=== PATIENT | female | born 1935 | race Caucasian/White ===

== ENCOUNTER 2017-08-25 14:22 | Outpatient (CLI) | payer MEDICARE, BC ==
[2017-08-25 14:58] LABS: Estimated GFR-MDRD - POC Greater than 90
[2017-08-25] MEDS ORDERED: Iopamidol 370 76% 100 ML VIAL ONE (16:24)
--- NOTE | 2017-08-25 16:32 | CT ---
EXAM: CT ANGIOGRAM OF THE NECK: COMPARISON: None. CORRELATION: Carotid ultrasound 04/09/17. TECHNIQUE: CT angiogram of the neck is performed in the axial plane. Sagittal and coronal 3-dimensional reforma tted images are submitted for interpretation. HISTORY: Tingling episode in the neck, going up the head. Syncope. Slurred speech yesterday. FINDINGS: Visualized brain parenchyma and orbits are unremarkable. Adequate aeration of the sinuses and mastoi d air cells. Midline fatty raphae of the tongue is preserved. No obvious masses in the oral cavity. Limited eval uation due to dental amalgam artifact. Epiglottis has a normal caliber. Preepiglottic fat is preser jatin. No prevertebral soft tissue swelling. Varying degrees of central canal stenosis and foraminal narrowing on the basis of degenerative change. There is severe central canal stenosis at the C5-C6 l evel. End plate sclerosis and osteophyte formation is present at C5-C6 and C6-C7. Symmetric attenuation of the parotid and submandibular glands. Heterogeneous attenuation of the thyr oid gland. Nonemergent thyroid ultrasound. Symmetric attenuation of the sternocleidomastoid muscles . No evidence of lymphadenopathy by size criteria. Upper mediastinum is unremarkable. There is a spiculated mass in the right upper lobe measuring 1.[address] ANGIOGRAM OF THE NECK: There is appropriate enhancement and luminal diameter of the aortic arch. RIGHT CAROTID: Right innominate artery origin has atherosclerotic disease. No evidence of high-grade stenosis. The right common carotid artery has appropriate enhancement and luminal diameter. There is atherosclero tic disease without significant stenosis of the right carotid bifurcation and proximal internal carot id artery. Mid to distal right internal carotid artery has appropriate enhancement and luminal diame ter. LEFT CAROTID: The left carotid artery origin demonstrates minimal atherosclerotic disease. No significant stenosis . The left common carotid artery has appropriate enhancement and luminal diameter. There is atheros clerotic disease with short-segment mild stenosis of the proximal left internal carotid artery. Both vertebral body origins are unremarkable. Cervical vertebral body arteries are patent throughout their course and are codominant. Both subclavian arteries are patent. IMPRESSION: 1. Atherosclerotic disease involving both carotid bifurcations and proximal internal carotid arterie s. No evidence of significant stenosis based upon NASCET criteria. 2. Spiculated mass in the right upper lobe, worrisome for malignancy until proven otherwise. Chest CT is recommended. CODE T POS: [facility]
== END 2017-08-25 14:23 | disposition home or self-care (01) ==
LOC: CT 14:22
PROVIDERS: ATTEND Psychiatry & Neurology Neurology
DX: R55 Syncope and collapse (principal); I65.23 Occlusion and stenosis of bilateral carotid arteries; R91.8 Other nonspecific abnormal finding of lung field
CPT/HCPCS: 70498; 95816

== ENCOUNTER 2017-09-03 08:51 | Outpatient (CLI) | payer MEDICARE, BC ==
--- NOTE | 2017-09-03 10:58 | CT ---
CT OF THE CHEST WITH CONTRAST: Comparison: CTA neck, 08-25-17 History: Lung mass seen on CTA neck. Technique: Multiple contiguous axial images were obtained in a CT of the chest with contrast. Coronal reformats were performed. FINDINGS: There is a 1.2 cm spiculated lesion peripherally in the right upper lobe. This may represent scarring or a mass. No other pulmonary nodules are seen. No pneumothorax or pleural effusion are seen. There are hypodensities in the bilateral kidneys which likely represent cysts. There are nonobstructi ng calcifications in the right kidney. The other visualized subdiaphragmatic structures are unremarka ble. Degenerative changes are seen in the spine. There is a 1.1 cm spiculated lesion in the outer asp ect of the right breast. IMPRESSION: 1. Right upper lobe spiculated lesion may represent scarring or a mass. A follow up CT in 3 months is recommended to evaluate for stability. Alternatively, a PET CT could be performed to evaluate for hy permetabolic activity. 2. Spiculated lesion in the outer aspect of the right breast. Correlate with history of right breast surgery. Correlate with mammography. This could potentially represent a right breast malignancy. Code T POS: [facility]
[2017-09-03] MEDS ORDERED: Iopamidol 370 76% 100 ML VIAL ONE (12:41)
== END 2017-09-03 08:52 | disposition home or self-care (01) ==
LOC: CT 08:51
PROVIDERS: ATTEND Psychiatry & Neurology Neurology
DX: R91.8 Other nonspecific abnormal finding of lung field (principal); R91.1 Solitary pulmonary nodule
CPT/HCPCS: 71260

== ENCOUNTER 2017-09-21 12:39 | Observation (INO) | payer MEDICARE, BC ==
[2017-09-21 13:02] LABS: #Eosinphils 0.1 thou/uL (0.0-0.7); #Lymphocytes 1.9 thou/uL (1.20-3.40); #Monocytes 0.7 thou/uL (0.11-0.59); #Neutrophils 4.9 thou/uL (1.40-6.50); %Basophils 0.2 % (0.0-1.0); %Eosinophils 1.6 % (0.0-10.0); %Lymphocytes 24.3 % (21.0-51.0); %Neutrophils 64.9 % (42.0-75.0); Hemoglobin 13.6 g/dL (12.0-16.0); Mean Corpuscular HGB CONC 33.3 g/dL (32.0-36.0); Mean Corpuscular Hemoglobin 32.3 pg (27.0-31.0); Mean Corpuscular Volume 97.1 fl (81.0-99.0); Mean Platelet Volume 7.6 fL (7.4-10.4); Platelet Count 234 thou/uL (130-400); RBC Distribution Width 12.7 % (11.5-14.5); White Blood Cell (WBC) Count 7.6 thou/uL (4.8-10.8)
[2017-09-21 13:24] LABS: ALT (SGPT) 19 U/L (8-55); AST (SGOT) 22 U/L (5-34); Albumin 3.9 g/dL (3.4-4.8); Alkaline Phosphatase 97 U/L (40-150); Anion Gap 12 mmol/L (10-20); BUN (Urea Nitrogen) 17 mg/dL (9.8-20.1); Bilirubin, Total 0.5 mg/dL (0.2-1.2); Calc. Creatinine Clearance 0 mL/min (70-130); Calcium 9.7 mg/dL (7.8-10.44); Carbon Dioxide 27 mmol/L (23-31); Chloride 105 mmol/L (98-107); Estimated GFR-MDRD Greater than 90; Globulin 2.7 g/dL (2.4-3.5); Glucose 105 mg/dL (83-110); Potassium 4.1 mmol/L (3.5-5.1); Protein, Total 6.6 g/dL (6.0-8.3); Sodium 140 mmol/L (136-145)
[2017-09-21 13:32] LABS: CKMB 3.5 ng/mL (0-6.6); Troponin I Less than 0.010 ng/mL (< 0.028)
--- NOTE | 2017-09-21 14:52 | CT ---
CT HEAD NONCONTRAST: Date: 09-21-17 History: Fall, headache. FINDINGS: Centered at the left frontal convexity is an ill-defined area of increased density having the appeara nce of subarachnoid hemorrhage measuring up to 2.1 cm in greatest width. A small amount of blood is a lso present at the anterior interhemispheric fissure along the falx. Ventricles appear normal in size , shape, and position. There is no mass effect or shift of midline structures. Visualized paranasal s inuses remain well aerated. IMPRESSION: 1. Left frontal subarachnoid hemorrhage. In the setting of recent trauma to the right posterior head, this likely represents a contra cu injury. Other cause is not readily apparent on this exam. 2. Findings were called to Dr. Velazco in the Emergency Department at 1322 hours. Code CR POS: [facility]
[2017-09-21] MEDS ORDERED: hydrALAZINE 20 MG/ML VIAL SLOW IVP PRN ×2 (14:53→18:30)
[2017-09-21] MEDS ORDERED: Labetalol HCl 100 MG/20 ML VIAL SLOW IVP PRN (14:53)
[2017-09-21] MEDS ORDERED: Labetalol HCl 100 MG/20 ML VIAL ONE (14:55)
--- NOTE | 2017-09-21 14:55 | CT ---
CT CERVICALS PINE NONCONTRAST: History: Fall. Neck injury. FINDINGS: Vertebral body heights are maintained. There is straightening of the normal lordotic curvature. Cervi cothoracic junction is intact. Osteophytosis, disc space narrowing, endplate sclerosis, and central c anal and foraminal stenoses are most pronounced at the C4-5, C5-6, and C6-7 levels. No acute fracture or dislocation are apparent. IMPRESSION: Prominent cervical spondylosis. No acute osseous abnormalities are demonstrated. POS: [facility]
--- NOTE | 2017-09-21 14:59 | RAD ---
CHEST ONE VIEW: History: Syncope. Comparison: 12-07-09 FINDINGS: Cardiac silhouette is magnified and enlarged. Pulmonary vasculature is upper limits of normal. Medias tinum is midline with aortic calcification. There is no lobar consolidation or evidence of pneumothor ax. armament mechanic leads overlie the chest. IMPRESSION: No active cardiopulmonary abnormalities are demonstrated. POS: [facility]
--- NOTE | 2017-09-21 16:46 | HP ---
REQUESTING PHYSICIAN: Karl Arias M.D. ATTENDING SURGEON: Jadiel Jay M.D. CONSULTATIONS: Neurosurgery, Leoncio Resendiz M.D. HISTORY OF PRESENT ILLNESS: The patient is an 82-year-old female who reportedly had a syncopal episo de [facility] [employer] today, she fell and was brought to the Emergency Department, evaluated and examined and noted to have a left frontal subarachnoid hemorrhage. The patient was noted to be on aspirin. Due t o this intracranial hemorrhage, we were asked to evaluate the patient for admission and evaluation an d obtain neurosurgical consultation. Of note, the patient has had prior syncopal episodes that have been evaluated by Cardiology to include long duration Holter monitor. Neurology to include EEG and h as also been evaluated by Pulmonology, but no specific reason for her syncopal episodes has been disc overed, this is her third episode in 1 year. The patient denies any aura or racing heartbeats, chest pain, shortness of breath, or seizure-like activity. ALLERGIES: None. CURRENT MEDICATIONS: Levothyroxine, gabapentin, Celebrex, aspirin, multivitamin, Ambien. PAST MEDICAL HISTORY: Rheumatoid arthritis, "leaky heart valve", breast CA, spinal cord compression, right bundle-branch block, hypothyroidism, and diverticulitis. PAST SURGICAL HISTORY: Back surgery and breast lumpectomy. SOCIAL HISTORY: The patient quit smoking more than 10 years ago. Occasionally has alcohol. Denies drug use. REVIEW OF SYSTEMS: Ten point review of systems was negative unless otherwise stated. PHYSICAL EXAMINATION: GENERAL: The patient is resting comfortably in the emergency room bed. She is alert and oriented x3 . She has good recall of the events. Her Saragosa coma scale is 15. HEENT: The patient has contusion to her occiput, otherwise her head is normocephalic. Eyes: Extrao cular motion intact. PERRLA bilaterally. Ears are atraumatic without discharge. Nose is atraumatic without discharge. Oropharynx is clear. NECK: The Patient has what she describes as her normal neck pain to the midline. Trachea is midline . No JVD. CHEST: Clear to auscultation with good inspiratory and expiratory effort. HEART: Regular rate and rhythm. ABDOMEN: Soft, flat, nontender with active bowel sounds. EXTREMITIES: Neurovascularly intact x4 with equal strength bilaterally in both upper and lower extre mities. BACK: Nontender and atraumatic. VITAL SIGNS: Blood pressure 164/90, heart rate 77, respirations 14, oxygen saturation is 98% on room air, temperature is 98.0. LABORATORY FINDINGS: White blood cell count 7.6, hemoglobin 13.6, hematocrit 40.8, platelets 234. S odium 140, potassium 4.1, chloride 105, CO2 27, BUN 17, creatinine 0.60, glucose 105. LFTs are unrem arkable. CK-MB 3.5, troponin less than 0.010. RADIOGRAPHIC FINDINGS: CT of the brain without contrast shows a left frontal subarachnoid hemorrhage in the setting of a recent trauma to the right posterior head, this is likely represents a contrecou p injury. CT of the C-spine without contrast shows prominent cervical spondylosis, no acute osseous abnormalities are demonstrated. AP chest x-ray shows no active cardiopulmonary abnormalities. ASSESSMENT AND PLAN: 1. Status post syncopal fall. 2. Left subarachnoid hemorrhage, on aspirin. 3. Hypertension. Plan will be to admit the patient to the telemetry floor. We will repeat her head CT in 6-8 hours pe r Neurosurgery for blood pressure control, pulmonary toilet, gastritis, mechanical DVT prophylaxis. Evaluation examination, radiographic, and laboratory findings were discussed with Dr. Jay in the Emergency Department, who evaluated the patient at that time.
[2017-09-21] MEDS ORDERED: Dextrose 5% in Water 1,000 ML IV PRN (18:30)
[2017-09-21] MEDS ORDERED: Ondansetron HCl/PF 4 MG/2 ML Vial IVP PRN (18:30)
[2017-09-21] MEDS ORDERED: Dextrose 50% Abboject 50 ML SYRINGE SLOW IVP PRN (18:30)
[2017-09-21] MEDS ORDERED: traMADol HCl 50 MG TAB PO PRN (18:30)
[2017-09-21] MEDS ORDERED: Ondansetron ODT 4 MG TAB PO PRN (18:30)
--- NOTE | 2017-09-21 19:45 | CON ---
DATE OF CONSULTATION: 09/21/2017 HISTORY OF PRESENT ILLNESS: Mr. Zapata is a very pleasant 82-year-old woman who was brought to [facility] Emergency Department by EMS because of a syncopal episode at [employer] resulting in a posterior scal p contusion to the occiput with contracoup intraparenchymal and subarachnoid hemorrhage of the left f rontal lobe and to a much lesser extent right frontal lobe, minimal mass effect and it does not appea r to be affecting her neurologically in any significant way. She does have a history of 1 additional syncopal episode and does have an extensive history of workup in the last 6-8 months with Neurology and Cardiology for this purpose with no obvious cause found. Her typical systolic pressures run in t he 120s to the upper one-teens, but this afternoon, in her ER room, they were around 180s to 190s. T his will certainly need to be addressed and I am not sure if it has any implications in her syncopal episodes also. She does take aspirin, so this will need to be held. I do not think that she needs a ny reversal therapy as it is only 81 mg daily. She denies any major complaints other than tenderness over the scalp hematoma posteriorly. PAST MEDICAL HISTORY: Significant for cardiac arrhythmia, syncopal episodes, hypothyroidism, breast cancer, gout, hypercholesterolemia and diverticulosis. PAST SURGICAL HISTORY: Includes implantation of a pacemaker. CURRENT MEDICATIONS: Alendronate, unspecified thyroid medication, aspirin, Ambien, venlafaxine. ALLERGIES: No known drug allergies. PHYSICAL EXAMINATION: GENEARL: Patient is alert and oriented x4. She understands where she is, her situation, the year, d ate of , her name and recounts to me in full detail the history of today's events as well as las t 10 years of her medical history. HEENT: Pupils are equal, round, and reactive to light. Extraocular movements are intact. She has f ull motor strength in the upper and lower extremities with noted discernible sensory disturbance. Sh e does have a small scalp hematoma to the occiput centrally at midline that is tender to palpation, o therwise it is atraumatic. NEUROLOGIC: Cranial nerves are all intact. ASSESSMENT: Status post fall and frontal intraparenchymal hemorrhage. PLAN: From a neurosurgical perspective, I do not believe this will need any surgical intervention. She will need to hold aspirin and other NSAIDs and other blood thinning medications with close observ ation, q.2 h. neuro checks on the surgical floor stroke unit and would likely benefit her to have add itional syncope workup to feeling any gaps that may have been present in her past workup though I am not sure what that would be. She brings up concerns over some previously mentioned cervical stenosis from several years ago, but I would not see how this would be related to syncopal episodes in her cu rrent situation. We will repeat a scan at around 8:00 this evening. As long as it is stable, she ca n be discharged home the following day. We will plan to follow up in the outpatient setting.
--- NOTE | 2017-09-21 21:57 | CT ---
CT OF HEAD NONCONTRAST: Comparison: Earlier same day. Indication: Intracranial hemorrhage, recent traumatic brain injury, serial exam. FINDINGS: There is mild scattered subarachnoid hemorrhage. Bifrontal contusions are present, greater on the lef t. There is a moderate degree of subdural hemorrhage along the interhemispheric falx. Trace degree of subarachnoid hemorrhage insinuates at that the skull base cisterns. No new mass effect or midline sh ift. No evidence of ventriculomegaly. IMPRESSION: Re-demonstration of extraaxial hemorrhage which does include subarachnoid and subdural hemorrhage, partida perimposed upon bifrontal contusions. No new mass effect or midline shift. POS: [facility]
[2017-09-21] MEDS: Acetaminophen 325 MG TAB PO SCH (22:04)
[2017-09-21] MEDS: Famotidine 20 MG TAB PO SCH (22:04)
--- NOTE | 2017-09-21 23:07 | RAD ---
RIGHT ANKLE THREE VIEWS: Indication: Pain. Injury related to fall. FINDINGS: There is an obliquely oriented minimally displaced distal fibular diaphyseal fracture. No asymmetric widening of the ankle mortise. There is soft tissue swelling. Osseous degenerative change is present. There is a partially imaged post-operative change at the right foot. Calcaneal enthesophytes are pre sent. IMPRESSION: Mildly displaced obliquely oriented distal fibular fracture. POS: [facility]
--- NOTE | 2017-09-21 23:20 | PRG ---
DATE OF SERVICE: 09/21/2017 SUBJECTIVE: This is an 82-year-old female status post syncopal event with fall and intracranial hemo rrhage. Patient's GCS has remained at 15 since admission. Upon my evaluation, she had a chief compl aint of headache and right ankle pain. OBJECTIVE: VITAL SIGNS: Vital signs reviewed and patient is hypertensive, otherwise stable. Breathing is nonla bored. Resting in bed in no acute distress. NEURO: GCS 15. EXTREMITIES: Moves all extremities x4. Right ankle with limited range of motion secondary to pain. ASSESSMENT AND PLAN: As documented in daily progress note. Continue care as ordered. Continue to m onitor. We will obtain a right ankle x-ray and follow up, given the patient's right ankle pain. Natalie friedman should also be receiving p.r.n. antihypertensive. She is not on any antihypertensives at home. Patient has had a syncopal workup in the past and follows up with Dr. Bernstein for Cardiology. We will discuss with trauma attending whether or not patient should see him in the hospital or follow up as an outpatient.
[2017-09-21 23:35] VITALS: BMI 33.1
[2017-09-22] MEDS: Acetaminophen 325 MG TAB PO SCH ×4 (01:56→09:18)
[2017-09-22 05:05] LABS: #Lymphocytes 1.9 thou/uL (1.20-3.40); #Monocytes 0.8 thou/uL (0.11-0.59); #Neutrophils 4.4 thou/uL (1.40-6.50); %Eosinophils 0.5 % (0.0-10.0); %Monocytes 11.6 % (0.0-10.0); %Neutrophils 61.9 % (42.0-75.0); Hemoglobin 12.1 g/dL (12.0-16.0); Mean Corpuscular HGB CONC 33.2 g/dL (32.0-36.0); Mean Corpuscular Hemoglobin 32.3 pg (27.0-31.0); Mean Corpuscular Volume 97.3 fl (81.0-99.0); Mean Platelet Volume 7.6 fL (7.4-10.4); Platelet Count 221 thou/uL (130-400); RBC Distribution Width 12.7 % (11.5-14.5); Red Blood Cell (RBC) Count 3.76 mill/uL (4.20-5.40); White Blood Cell (WBC) Count 7.2 thou/uL (4.8-10.8)
[2017-09-22 05:33] LABS: Anion Gap 10 mmol/L (10-20); BUN (Urea Nitrogen) 13 mg/dL (9.8-20.1); Calc. Creatinine Clearance 89 mL/min (70-130); Calcium 10.2 mg/dL (7.8-10.44); Carbon Dioxide 28 mmol/L (23-31); Chloride 106 mmol/L (98-107); Estimated GFR-MDRD Greater than 90; Glucose 101 mg/dL (83-110); Potassium 3.9 mmol/L (3.5-5.1); Sodium 140 mmol/L (136-145)
[2017-09-22] MEDS: Gabapentin 100 MG CAP PO SCH ×2 (08:09→09:18)
[2017-09-22] MEDS: Famotidine 20 MG TAB PO SCH ×2 (08:09→09:18)
[2017-09-22] MEDS ORDERED: Levothyroxine Sodium 75 MCG TAB PO SCH (09:00)
--- NOTE | 2017-09-22 10:22 | CON ---
DATE OF CONSULTATION: 09/22/2017 REQUESTING PHYSICIAN: Trauma Service team. CONSULTING PHYSICIAN: Eyad Pool M.D. PRINCIPAL DIAGNOSIS: Left subarachnoid hemorrhage. HISTORY OF PRESENT ILLNESS: This is an 82-year-old female who reportedly had a syncopal episode while at [employer] yesterday. She states that she hit her head when she fell. Upon arriving to the hospital emergency department, she states that she noted some right-sided ankle pain. Our service was consulted for right ankle pain. The patient reports primarily lateral-sided pain accompanied with some swelling that she has also noticed since she has been in the hospital. She denies any deformity. She does not remember the event of her fall yesterday. She does report a history of previous foot surgery to the side. She states that she normally gets around on her own at home without any ambulation assistance. X-rays have been obtained and our service was consulted for further orthopedic evaluation. PAST MEDICAL HISTORY: Significant for rheumatoid arthritis for which she sees Dr. Hill. Also significant for history of breast cancer and right bundle branch block, as well as hypothyroidism and diverticulitis. PAST SURGICAL HISTORY: Includes back surgery and breast lumpectomy. SOCIAL HISTORY: The patient quit smoking over 10 years ago. Occasionally has alcohol. Denies any illicit drug use. FAMILY HISTORY: Noncontributory. REVIEW OF SYSTEMS: The patient denies any recent fever, chills or sweats. She also denies any shortness of breath. Denies any numbness or tingling in the right lower extremity. PHYSICAL EXAMINATION: VITAL SIGNS: Including temperature of 98.9 degrees Fahrenheit, pulse of 76, respiratory of 18, and blood pressure of 122/58. GENERAL: She is awake, alert, and oriented. She is sitting up in bed. EXTREMITIES: Evaluation of the right lower extremity shows active range of motion in the knee and the ankle without difficulty. She has mild soft tissue swelling on the lateral aspect of the ankle. This area is also tender to palpation. No deformity is noted. SKIN: Intact. No ecchymosis or wounds appear. She does have a surgical scar over the dorsum of the foot from a previous bunion correction procedure. Capillary refill 2 seconds. No medial sided ankle tenderness. IMAGING DATA: X-ray findings including 3 views of the right ankle are remarkable for a minimally displaced distal fibula fracture. ASSESSMENT: An 82-year-old female status post syncopal episode with fall, including a subarachnoid hemorrhage and a right distal fibula fracture. PLAN: She is currently admitted to Trauma. We will place her in a high walking boot. She will wear this at all times and they are removed for showering purposes. She will be 50% weightbearing on the right lower extremity and we will use a walker for ambulation with the assistance of Physical Therapy and Occupational Therapy. She will follow up in our clinic in 10-14 days as an outpatient. [facility]
[2017-09-22 12:02] VITALS: TEMP 98.3
--- NOTE | 2017-09-22 13:25 | PRG ---
DATE OF SERVICE: 09/22/2017 Ms. Zapata is doing well this morning. It was found out that she does have a small fracture in her rig ht ankle and is going to have an orthopedic evaluation today for that purpose. Her CT scan last nigh t is stable to the one that was performed in the emergency department and neurologically she is doing very well. From a neurosurgical standpoint, she is free to be discharged at any time and we will pl an to have follow up with her in the outpatient setting.
[2017-09-22 15:26] VITALS: BP 126/59
--- NOTE | 2017-09-23 00:26 | CON ---
DATE OF ADMISSION: 09/21/2017 DATE OF CONSULTATION: 09/22/2017 ADMITTING PHYSICIAN: Trauma Service. CONSULTATION: Dr. Bernstein, Cardiology. REASON FOR CONSULTATION: Recurrent syncope. HISTORY OF PRESENT ILLNESS: Ms. Zapata is a pleasant 82-year-old female with a past medical history of recurrent syncope. She has been evaluated by Dr. Bernstein in the past for history of the syncopal episode that occurred in 2015. She has a history of old bifascicular block that was diagnosed years ago. She has had previous echocardiograms done in the office, which were negative. She also had a stress test in 05/2017, that was negative. The patient gives history of recurrent dizziness that happens on regular basis. She did wear a 30-day vent monitor in 05/2017 that was negative for any arrhythmias. She reports that yesterday, she felt her heart race and then had syncopal episode. She has occasional palpitations and she cannot tell me if these are related to her dizzy spells that happen frequently. She denies any chest pain or shortness of breath. Her lab work has been normal. Telemetry has been negative for any arrhythmias or bradycardia. She had a brain CT as well as cervical spine CTs were done. She did suffer distal fibular fracture as a result of this fall. PAST MEDICAL HISTORY: Rheumatoid arthritis, breast cancer, history of spinal cord compression, bifascicular block, hypothyroidism, diverticulitis. PAST SURGICAL HISTORY: Back surgery and breast lumpectomy. SOCIAL HISTORY: The patient lives alone and occasionally uses alcohol. She has no previous drug use history. She was a former smoker, but quit more than 10 years ago. REVIEW OF SYSTEMS: 12-point review of systems discussed with the patient negative except for HPI and PMHx mentioned above . PHYSICAL EXAMINATION: GENERAL: A pleasant elderly female is in no acute distress. She is sitting up in bed, resting comfortably, conversing easily. NEUROLOGIC: She is alert and oriented x3. VITAL SIGNS: Temperature 98.3, respiratory rate is 16, pulse 79, blood pressure is 126/59. I's and O's not recorded. Weight is 169 pounds. HEENT: Atraumatic, normocephalic. She does have a slight area of ecchymosis to her right inferior orbital area. NECK: Supple, with no JVD or bruits noted. LUNGS: Chest is clear to auscultation bilaterally. CARDIOVASCULAR: Regular rate and rhythm, normal S1, S2. ABDOMEN: Soft and nontender to palpation, nondistended. EXTREMITIES: Show no clubbing, cyanosis or edema. She does have a boot on her right lower extremity. SKIN: Warm and dry. PSYCHIATRIC: Mood and affect are appropriate. MUSCULOSKELETAL: Full range of motion in all extremities other than her right lower extremity, which could not be examined due to boot in place. She does have joint deformities from her RA. Telemetry shows a sinus rhythm with no arrhythmias or bradycardia noted. IMPRESSION: 1. Recurrent syncope. 2. History of bifascicular block. At this time, the patient is stable. PLAN: I have recommended a Linq placement for further rule out of arrhythmias. I discussed all risks of the procedure with her along with benefits. She is adamant that she wants to go home today and does not want to have the procedure done at this time. I discussed the need to do it in the next week or so. She does agree to call the office and arrange this as an outpatient. Otherwise, I have informed her that she cannot drive. She agrees to this. At this time, she is stable and cleared by the Trauma Service and okay for discharge. Further recommendations are pending outpatient evaluation. [facility]
--- NOTE | 2017-09-23 20:38 | DIS ---
DATE OF ADMISSION: 09/21/2017 DATE OF DISCHARGE: 09/22/2017 ADMITTING PHYSICIAN: Dr. Jay. DISCHARGING PHYSICIAN: Dr. Agustin Ochoa. CHIEF COMPLAINT: Traumatic subarachnoid hemorrhage secondary to syncopal episode. HOSPITAL COURSE: The patient is an 82-year-old female who reportedly had a syncopal episode at [facility]. She fell and was brought to the emergency department at [place] then noted to have a left frontal subarachnoid hemorrhage. Neurosurgery was consulted and Trauma Services was asked to admit. The patient had had a previous workup for syncope, by Cardiology, Pulmonology and Neurology. These workups failed to turn up anything. The patient was admitted to the stroke floor. She later complained of right ankle pain. Orthopedics was consulted and she was found to have a right fibular fracture. This was determined to be nonoperative. The patient was fitted with a boot and instructed to follow up with orthopedics in 4 weeks. The patient was also seen by Cardiology. They discussed inserting a loop recorder; however, the luis alberto ent who was otherwise stable medically, did not want to wait an extra day in the hospital in order to have it placed, so she elected to have it place as an outpatient. A repeat CT scan showed that her subarachnoid hemorrhage was stable. The patient was alert, oriented , and without any apparent cognitive or neurological deficits. She was determined to be stable from a neurological point of view and was discharged in good condition with instructions for followup on 0 09/22/2017. ADMISSION DIAGNOSES: 1. Status post fall. 2. History of syncope. 3. Traumatic subarachnoid hemorrhage. 4. Right distal fibular fracture. 5. Hypertension. DISCHARGE DIAGNOSES: 1. Status post fall. 2. History of syncope. 3. Traumatic subarachnoid hemorrhage. 4. Right distal fibular fracture. 5. Hypertension. DISCHARGE MEDICATIONS: The patient was instructed to continue her home medications. The patient was also given a prescription for tramadol 50 mg p.o. q.6 hours as needed. The patient was also instruc lucy to take [id number] Tylenol 650 mg q.4 hours. ACTIVITY INSTRUCTIONS: Orthopedic limitations, the patient was given a boot to wear on her right leg . Instructions for 50% weightbearing on her right leg. The patient also instructed to use a rolling walker. NOURISHMENT INSTRUCTIONS: The patient was discharged on a heart healthy diet. THERAPY INSTRUCTIONS: Physical and occupational therapy with home health. FOLLOWUP INSTRUCTIONS: The patient is to follow up with her primary care provider in 7 days. The pa tient is to also follow up with Dr. Leoncio Resendiz in 14 days. The patient is to follow up with Dr. Sacha Pool in 2-3 weeks. The patient is to call and schedule a followup appointment with Dr. Sallie Bernstein. This patient was seen and examined along with Dr. Agustin Ochoa, who agrees with this discharge plan.
--- NOTE | 2017-09-27 18:04 | EKG ---
Test Reason : CHESTPAIN Blood Pressure : / mmHG Vent. Rate : 087 BPM Atrial Rate : 087 BPM P-R Int : 160 ms QRS Dur : 118 ms QT Int : 392 ms P-R-T Axes : 045 -62 084 degrees QTc Int : 471 ms Normal sinus rhythm Left anterior fascicular block Left ventricular hypertrophy with QRS widening and repolarization abnormality Abnormal ECG Confirmed by FAHAD HARRISON MD ([id number]), online editor EVANGELIST BATEMAN ([id number]) on 09/27/2017 6:03:35 PM Referred By: CHRISTY Confirmed By:FAHAD HARRISON MD
== END 2017-09-22 17:53 | disposition home health service (06) ==
LOC: ERS 12:39 → 2SE 18:15
PROVIDERS: ADMIT Surgery; ATTEND Surgery
DX: R55 Syncope and collapse (principal); S06.6X9A Traumatic subarachnoid hemorrhage with loss of consciousness of unspecified duration, initial encounter; S89.301A Unspecified physeal fracture of lower end of right fibula, initial encounter for closed fracture; S00.03XA Contusion of scalp, initial encounter; I10 Essential (primary) hypertension; E03.9 Hypothyroidism, unspecified; I45.10 Unspecified right bundle-branch block; M06.9 Rheumatoid arthritis, unspecified; Z87.891 Personal history of nicotine dependence; Z85.3 Personal history of malignant neoplasm of breast; Z79.82 Long term (current) use of aspirin; Z79.83 Long term (current) use of bisphosphonates; Z79.899 Other long term (current) drug therapy; Z95.0 Presence of cardiac pacemaker; Z90.10 Acquired absence of unspecified breast and nipple; Z98.890 Other specified postprocedural states; W19.XXXA Unspecified fall, initial encounter
CPT/HCPCS: 70450; 71045; 72125; 73610; 80048; 80053; 82553; 84484; 85025 ×2; 93005; 96374; 96375; 96376; 97116; 97139 ×2; 97530; 99291; G0378; G8978; G8979; G8980; G8987; G8988; 36415; J0360; J2405

== ENCOUNTER 2017-12-16 10:42 | Outpatient (CLI) | payer MEDICARE, BC | END 2017-12-16 10:43 | disposition home or self-care (01) | LOC: BICCT 10:42 | PROVIDERS: ATTEND Internal Medicine Critical Care Medicine | DX: R91.1 Solitary pulmonary nodule (principal); I70.90 Unspecified atherosclerosis | CPT/HCPCS: 71250 ==

== ENCOUNTER 2017-12-30 12:33 | Outpatient (CLI) | payer MEDICARE, BC | END 2017-12-30 12:34 | disposition home or self-care (01) | LOC: BICCT 12:33 | PROVIDERS: ATTEND Psychiatry & Neurology Neurology | DX: R58 Hemorrhage, not elsewhere classified (principal) | CPT/HCPCS: 70450 ==

== ENCOUNTER 2018-01-01 12:47 | Outpatient (CLI) | payer MEDICARE, BC ==
--- NOTE | 2018-01-01 15:58 | PET ---
PET CT 01/01/18 INDICATION: History of right upper lobe pulmonary nodule. TECHNIQUE: PET CT images were obtained from the skull to the mid thighs following administration of 12.6 millicu tamara of F18 FD[address] IV[address] images were obtained for attenuation correction purposes only. Comparisons are made with a CTA of the neck dated 08/25/[address] of the chest dated 09/03/17. FINDINGS: The ground glass pulmonary nodule with solid components is roughly stable in size measuring up to 1.6 cm where a similar measurement on the axial image from a CTA of the neck dated 08/25/17, this lesion measured approximately 1.7 cm. There is no associated hypermetabolic activity with this pulmonary nod ule with a peak SUV uptake of 0.95 and a mean uptake of 0.89. No additional hypermetabolic pulmonary nodule is noted. No hypermetabolic lymphadenopathy is evident. No hypermetabolic lymphadenopathy or mass is seen within the head and neck region nor within the abdo men or pelvis. No hypermetabolic pleural effusion or ascites is present. No hypermetabolic skin or osseous lesion is noted. IMPRESSION: The pulmonary nodule within the right upper lobe demonstrates no hypermetabolic uptake and may reflec t a nonspecific inflammatory nodule. An entity such as adenocarcinoma of the lung cannot be entirely excluded based on the imaging characteristics. Would recommend a CT followup in 6 months to document stability. POS: SINDY
== END 2018-01-01 12:48 | disposition home or self-care (01) ==
LOC: PET 12:47
PROVIDERS: ATTEND Internal Medicine Critical Care Medicine
DX: R91.1 Solitary pulmonary nodule (principal); R91.8 Other nonspecific abnormal finding of lung field
CPT/HCPCS: 78815; A9552

== ENCOUNTER 2018-02-18 11:08 | Outpatient (CLI) | payer MEDICARE, BC | END 2018-02-18 11:09 | disposition home or self-care (01) | LOC: BICMAMMO 11:08 | PROVIDERS: ATTEND Obstetrics & Gynecology | DX: Z12.31 Encounter for screening mammogram for malignant neoplasm of breast (principal); Z80.3 Family history of malignant neoplasm of breast; Z85.3 Personal history of malignant neoplasm of breast | CPT/HCPCS: 77063; 77067 ==

== ENCOUNTER 2018-03-13 13:21 | Day surgery (SDC) | payer MEDICARE, BC ==
[2018-03-13] MEDS ORDERED: CEFAZOLIN/Water 2 GM/20 ML SYRINGE ONE (13:44)
[2018-03-13] MEDS ORDERED: CEFAZOLIN 1 GM VIAL ONE (13:44)
[2018-03-13] MEDS ORDERED: Gentamicin 80 MG/2 ML VIAL ONE (13:45)
[2018-03-13] MEDS ORDERED: Sodium Chloride 0.9% 10 ML ONE (13:45)
[2018-03-13] MEDS ORDERED: Midazolam HCl 2 mg/2 ml Vial ONE (15:15)
[2018-03-13] MEDS ORDERED: Zolpidem Tartrate 5 MG TAB PO PRN (16:22)
[2018-03-13] MEDS ORDERED: Acetaminophen/Codeine 30-300mg Tablet PO PRN (16:22)
[2018-03-13 17:16] LABS: #Eosinphils 0.1 thou/uL (0.0-0.7); #Lymphocytes 1.7 thou/uL (1.20-3.40); #Monocytes 0.7 thou/uL (0.11-0.59); #Neutrophils 2.8 thou/uL (1.40-6.50); %Basophils 0.8 % (0.0-1.0); %Eosinophils 1.5 % (0.0-10.0); %Lymphocytes 32.8 % (21.0-51.0); %Monocytes 12.4 % (0.0-10.0); %Neutrophils 52.5 % (42.0-75.0); Hemoglobin 13.4 g/dL (12.0-16.0); Mean Corpuscular Hemoglobin 33.2 pg (27.0-31.0); Mean Corpuscular Volume 97.5 fL (78.0-98.0); Mean Platelet Volume 6.5 fL (7.4-10.4); Platelet Count 245 thou/uL (130-400); RBC Distribution Width 12.3 % (11.5-14.5); Red Blood Cell (RBC) Count 4.05 mill/uL (4.20-5.40); White Blood Cell (WBC) Count 5.3 thou/uL (4.8-10.8)
[2018-03-13 17:38] LABS: Anion Gap 11 mmol/L (10-20); BUN (Urea Nitrogen) 18 mg/dL (9.8-20.1); Calc. Creatinine Clearance 0 mL/min (70-130); Calcium 9.2 mg/dL (7.8-10.44); Carbon Dioxide 26 mmol/L (23-31); Chloride 106 mmol/L (98-107); Estimated GFR-MDRD Greater than 90; Glucose 83 mg/dL (83-110); Sodium 139 mmol/L (136-145)
[2018-03-13 17:45] VITALS: BMI 32.1
--- NOTE | 2018-03-13 18:39 | RAD ---
AP CHEST: 03/13/18 HISTORY: Post cardiac device placement. Pacemaker leads have been placed via the left subclavian vein. These leads appear in adequate positio n. There is mild cardiomegaly. Vascular markings are upper normal. No evidence of vascular congestion or edema. No infiltrate. No pneumothorax. IMPRESSION: No acute process. POS: AGW
[2018-03-13] MEDS ORDERED: hydrALAZINE 20 MG/ML VIAL SLOW IVP PRN (20:03)
[2018-03-13] MEDS: Gabapentin 100 MG CAP PO SCH (20:55)
--- NOTE | 2018-03-13 22:50 | CCL ---
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 She was advised to undergo dual- chamber pacemaker insertion. She was taken to the cardiac computer lab assistant where she was prepped and draped in sterile fashion and using a sterile technique, a pacemaker pocket was easily dissected and then a chamber pacemaker from [employer] was implanted. This was an Advisa with two screw-in leads, one in the atrium and one in the ventricle. There were no significant difficulties encountered. The pacemaker set with the upper rate of 120 and the lower rate was set at 60. The patient tolerated the procedure well. She also got 2 mg of Versed for conscious sedation during the procedure and for the procedure was monitored by an independent observer present for heart rate, blood pressure, O2 saturation. She remained stable throughout the procedure. Pacemaker was set with upper rate 120, lower rate was set at 60. After the pacemaker was inserted the Linq ( implantable loop recorder) was removed. VITA
[2018-03-14] MEDS: Gabapentin 100 MG CAP PO SCH (08:24)
[2018-03-14] MEDS ORDERED: Aspirin 325 MG TAB PO SCH (09:00)
[2018-03-14] MEDS ORDERED: Prevnar 13-Val Conj/PF 0.5 ML SYRINGE IM ONE (09:00)
[2018-03-14 11:15] VITALS: TEMP 98.7
--- NOTE | 2018-03-14 12:25 | DIS ---
DATE OF ADMISSION: 03/13/2018 DATE OF DISCHARGE: 03/14/2018 SUMMARY: Ms. Zapata is a pleasant 82-year-old white female who came to the hospital for a planned pacemaker. She has been having syncopal spells once every 6 months for the last few years. Finally, it was discovered that she was having episodes of complete heart block, so she was called in and she received a dual-chamber pacemaker yesterday by Dr. Vann where she did well. Her site looks very clean, dry, and intact. No swelling, no hematoma seen. She is otherwise doing quite well. Chest x-ray was unremarkable with no evidence of complications. DISCHARGE MEDICATIONS: Medications on discharge are unchanged from admission. Plan on discharging home. No driving for now for at least 6 months since the last episode, make sure this is not going to recur in any other way. FOLLOWUP APPOINTMENTS: 1. Dr. Bernstein in [address] Vann in the device clinic for wound check in 1 week. VITA
[2018-03-14 12:43] VITALS: BP 153/63
== END 2018-03-14 12:53 | disposition home or self-care (01) ==
LOC: CCL 13:21 → 2SW 17:11 → UNDOADMOB 17:11 → 2SW 20:17 → CCL 03-14 12:53 → UNDODISOB 03-14 12:53
PROVIDERS: ATTEND Internal Medicine Cardiovascular Disease
PROC: 0JH606Z Insertion of Pacemaker, Dual Chamber into Chest Subcutaneous Tissue and Fascia, Open Approach (ICD-10-PCS; principal; 2018-03-13)
PROC: 02H63JZ Insertion of Pacemaker Lead into Right Atrium, Percutaneous Approach (ICD-10-PCS; 2018-03-13)
PROC: 02HK3JZ Insertion of Pacemaker Lead into Right Ventricle, Percutaneous Approach (ICD-10-PCS; 2018-03-13)
DX: I44.2 Atrioventricular block, complete (principal); E03.9 Hypothyroidism, unspecified; M06.9 Rheumatoid arthritis, unspecified; Z87.891 Personal history of nicotine dependence; Z79.82 Long term (current) use of aspirin; Z79.899 Other long term (current) drug therapy
CPT/HCPCS: 33249; 33284; 71045; 80048; 85025; 93005; 93798; C1785; C1898 ×2; 36415; 93010; 99152; 99153; J0690; J1580; J2250

== ENCOUNTER 2018-05-07 14:09 | Outpatient (CLI) | payer MEDICARE, BC ==
[~2018-05-07 14:09] MED LIST: Gadobenate Dimeglumine 529 MG/1 ML (20ML VIAL) ONE
--- NOTE | 2018-05-07 18:45 | MRI ---
MRI LUMBAR SPINE WITH AND WITHOUT CONTRAST: 05/07/18 HISTORY: Lumbar spinal stenosis. COMPARISON: None. TECHNIQUE: MRI of the lumbar spine is performed with and without intravenous gadolinium administration. Multiseq uential, multiplanar imaging is performed. FINDINGS: There is appropriate T1 marrow signal intensity of the lumbar vertebrae. Lumbar spine vertebral body height is maintained. No fracture. 2.8 mm of retrolisthesis of T12 upon L1, 4.2 mm of retrolisthesis of L4 upon L2, 1.7 mm of retrolisthesis of L3 upon L4, 7.5 mm anterolisthesis of L4 upon L5. No signi ficant STIR hyperintensity to suggest vertebral body edema or ligamentous injury. Symmetric signal in tensity of the psoas muscle. T2 hyperintensity in the left and right renal cortex likely representin g cysts. Conus medullaris terminates at the lower aspect of L1. On the postcontrast images, no abnormal enhancement within the thecal sac. No abnormal enhancement of the cauda equina or conus medullaris. There is abnormal edema, T1 marrow signal hypointensity enhancement involving the left and right aspe ct of the sacrum with associated sclerosis on PET CT 01/01/18. Sacroiliitis is favored. T9-T10: Left paracentral disc bulge with at least mild central canal stenosis. T10-T11, T11-T12 and T12-L1: No high grade central canal stenosis. L1-L2: Severe loss of disc space height. Generalized disc bulge. No high grade central canal stenosis . Severe right and mild left foraminal narrowing. L2-L3: Desiccation with severe loss of disc space height. Generalized disc bulge, ligamentum flavum t hickening and facet hypertrophy results in mild central canal stenosis. There is significant narrowin g of the left subarticular zone with presumed mass effect upon the traversing left L3 nerve root. Sev ere right and moderate left foraminal narrowing. L3-L4: Desiccation with mild loss of disc space height. Generalized disc bulge, ligamentum flavum thi ckening, facet hypertrophy result in moderate central canal stenosis. Moderate to severe bilateral ne ural foraminal narrowing. L4-L5: Moderate loss of disc space height. Generalized disc bulge, ligamentum flavum thickening and f acet hypertrophy result in mild central canal stenosis. Mild right and moderate left foraminal narrow ing. L5-S1: Posterior decompression changes. There is a generalized disc bulge. Mild to moderate central c anal stenosis. Moderate bilateral foraminal narrowing. On the postcontrast images, there is enhancing scar tissue at the laminectomy defect site at L5-S1. P ossible facetectomy on the left side at L4-L5. IMPRESSION: 1. Sacroiliitis involving the left and right sacroiliac joint. However, given history, the poss ibility of a sacral insufficiency fracture can not be excluded. Consider bone scan. 2. Postsurgical changes and degenerative changes of the lumbar spine as above. There is signific ant central canal stenosis and foraminal narrowing at multiple levels. Code T POS: SINDY
== END 2018-05-07 14:10 | disposition home or self-care (01) ==
LOC: MRI 14:09
PROVIDERS: ATTEND Neurological Surgery
DX: M48.061 Spinal stenosis, lumbar region without neurogenic claudication (principal); M47.896 Other spondylosis, lumbar region; M46.1 Sacroiliitis, not elsewhere classified; Z98.890 Other specified postprocedural states
CPT/HCPCS: 72158; A9579

== ENCOUNTER 2018-07-08 10:04 | Outpatient (CLI) | payer MEDICARE, BC ==
--- NOTE | 2018-07-08 11:48 | RAD ---
FOUR VIEWS LUMBOSACRAL SPINE: Comparison: MRI lumbar spine 05-07-18. History: Spondylolisthesis of the lumbar region. Back pain, left greater than right. History of spina l surgery 5 years ago. FINDINGS: AP, lateral, flexion and extension views of the lumbosacral spine were performed. There is grade I-II anterolisthesis of L4 on L5. This alignment is unchanged with flexion and extension. The interverteb ral discs are narrowed throughout the lumbar spine with moderate surrounding osteophytes. Posterior f acet arthrosis is seen throughout the lumbar spine. Vascular calcifications are seen in the aorta. Severe sclerotic changes seen surrounding both sacroil iac joints. IMPRESSION: 1. Severe degenerative changes of the lumbar spine. 2. Spondylolisthesis of L4 on L5 with unchanged alignment with bending. POS: SINDY
== END 2018-07-08 10:05 | disposition home or self-care (01) ==
LOC: BICRAD 10:04
PROVIDERS: ATTEND Specialist
DX: M43.16 Spondylolisthesis, lumbar region (principal); M47.816 Spondylosis without myelopathy or radiculopathy, lumbar region
CPT/HCPCS: 72110

== ENCOUNTER 2019-03-16 09:52 | Outpatient (CLI) | payer MEDICARE, BC ==
--- NOTE | 2019-03-16 10:54 | CT ---
EXAM: CT of the chest without contrast HISTORY: Pulmonary nodule COMPARISON: 07/14/2018, 12/06/2017, 09/03/2017 TECHNIQUE: Multiple contiguous axial images were obtained in a CT the chest without contrast. Coronal reformats were performed. FINDINGS: HEART: Global cardiomegaly. Calcifications in the coronary arteries. MEDIASTINUM: No hilar or mediastinal lymphadenopathy. Evaluation of the mediastinum is limited withou t IV contrast. LUNGS: There is continued enlargement of the right upper lobe pulmonary nodule. This now has a bilobe d configuration and measures 1.6 x 0.9 x 1.4 cm in size. This mass is spiculated and suspicious for a pulmonary malignancy. PLEURAL SPACE: No pneumothorax or pleural effusion. CHEST WALL SOFT TISSUES: Left subclavian pacemaker with its leads in the right atrium and ventricle. OSSEOUS STRUCTURES: Degenerative changes in the spine. VISUALIZED SUBDIAPHRAGMATIC STRUCTURES: Unremarkable IMPRESSION: Continued enlargement of right upper lobe suspicious mass
== END 2019-03-16 09:53 | disposition home or self-care (01) ==
LOC: BICCT 09:52
PROVIDERS: ATTEND Internal Medicine Critical Care Medicine
DX: R91.1 Solitary pulmonary nodule (principal)
CPT/HCPCS: 71250

== ENCOUNTER 2019-03-25 08:58 | Outpatient (CLI) | payer MEDICARE, BC ==
--- NOTE | 2019-03-25 13:15 | PET ---
PET SCAN WITH CT ATTENUATION CORRECTION: HISTORY: Enlarging right upper lobe mass. Breast cancer. COMPARISON: 01/01/18. CORRELATION: Noncontrast chest CT dated 07/14/18 and 06/16/19. TECHNIQUE: PET scanning with CT attenuation correction is performed from the base of the brain to the proximal t highs following the intravenous administration of 11.1 mCi F18-FDG. FINDINGS: HEAD/NECK: No abnormal FDG localization. CHEST: There is an abnormal soft tissue density in the right breast with a maximum SUV of 0.98. Post-treatme nt changes in the right breast suspected. There is no abnormal FDG localization in the mediastinum or left lung. Redemonstration of a mass in the right upper lobe. Maximum SUV is 1.9. There is no abnormal FDG local ization in the right lung. ABDOMEN/PELVIS: No abnormal FDG localization. OSSEOUS STRUCTURES: No abnormal FDG localization. IMPRESSION: 1. Though there is an enlarging mass in the right upper lobe, with irregular margination, there is n o associated significant FDG avidity. 2. Probable scar in the right breast, given the patient's history of breast cancer. 3. Nonhypermetabolic nodule in the right adrenal gland, incompletely evaluated. However, lack of FDG avidity and a previous report from 06/08/13 are suggestive of a benign adenoma. POS: SINDY
== END 2019-03-25 08:59 | disposition home or self-care (01) ==
LOC: PET 08:58
PROVIDERS: ATTEND Internal Medicine Critical Care Medicine
DX: R91.8 Other nonspecific abnormal finding of lung field (principal); E27.8 Other specified disorders of adrenal gland; Z85.3 Personal history of malignant neoplasm of breast
CPT/HCPCS: 78815; A9552

== ENCOUNTER 2019-04-07 10:01 | Outpatient (CLI) | payer MEDICARE, BC ==
--- NOTE | 2019-04-07 11:32 | MMO ---
Bilateral MAMMO Bilat Screen [facility]. CLINICAL HISTORY: Patient is 83 years old and is seen for screening. The patient has the following family history of breast cancer: paternal grandmother, at age 55, malignant (generic). 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 The patient has a history of right Lumpectomy in February, - malignant. VIEWS: The views performed were: bilateral craniocaudal with tomosynthesis; bilateral mediolateral oblique with tomosynthesis; and right mediolateral oblique. FILMS COMPARED: The present examination has been compared to prior imaging studies performed at [facility] on 02/01/2015, 02/07/2016, 02/12/2017 and 02/18/2018. MAMMOGRAM FINDINGS: There are scattered fibroglandular densities. Finding 1: There are stable post operative changes seen in the right breast. Finding 2: There are stable benign appearing calcifications seen in both breasts. There are no suspicious masses, suspicious calcifications, or new areas of architectural distortion. IMPRESSION: THERE IS NO MAMMOGRAPHIC EVIDENCE OF MALIGNANCY. A ROUTINE FOLLOW-UP MAMMOGRAM IN 1 YEAR IS RECOMMENDED. THE RESULTS OF THIS EXAM WERE SENT TO THE PATIENT. ACR BI-RADS Category 2 - Benign finding MAMMOGRAPHY NOTE: 1. A negative mammogram report should not delay a biopsy if a dominant of clinically suspicious mass is present. 2. Approximately 10% to 15% of breast cancers are not detected by mammography. 3. Adenosis and dense breasts may obscure an underlying neoplasm. Reported by: LM LINTON MD Electonically Signed: [id number]
== END 2019-04-07 10:02 | disposition home or self-care (01) ==
LOC: BICMAMMO 10:01
PROVIDERS: ATTEND Specialist
DX: Z12.31 Encounter for screening mammogram for malignant neoplasm of breast (principal); Z80.3 Family history of malignant neoplasm of breast
CPT/HCPCS: 77063; 77067

== ENCOUNTER 2019-09-30 09:58 | Outpatient (CLI) | payer MEDICARE, BC ==
--- NOTE | 2019-09-30 11:21 | CT ---
CT OF THE CHEST WITHOUT CONTRAST: COMPARISON: 03/16/2019, 07/14/2018, PET CT 03/25/2019. HISTORY: Right-sided pulmonary nodule. History of breast cancer of the right breast status post chemotherapy and radiation therapy. TECHNIQUE: Multiple contiguous axial images were obtained in a CT of the chest without contrast. Sagittal and c oronal reformats were performed. FINDINGS: There is a stable area of nodularity in the inferior aspect of the right upper lobe measuring approxi mately 1.6 cm in greatest dimension. No new pulmonary nodules are seen. No pneumothorax or pleural effusion are seen. The heart is normal in size. There is a pacemaker with its leads in the right atrium and ventricle. Calcifications are seen in the coronary arteries and aorta. No hilar or mediastinal lymphadenopathy are seen. There is an area of scarring in the right lateral breast. Degenerative changes are seen in the spine . No suspicious osseous lesions are identified. There are stable calcifications in both kidneys whi ch are nonobstructing. There is a stable right adrenal nodule. IMPRESSION: Stable right upper lobe nodularity. This continues to demonstrate no hypermetabolic activity on PET CT and may represent scarring rather than a metastatic lesion. POS: TPC
== END 2019-09-30 09:59 | disposition home or self-care (01) ==
LOC: BICCT 09:58
PROVIDERS: ATTEND Internal Medicine Critical Care Medicine
DX: R91.1 Solitary pulmonary nodule (principal)
CPT/HCPCS: 71250

== ENCOUNTER 2020-01-06 16:15 | Outpatient (CLI) | payer MEDICARE, BC, OTHER ==
[2020-01-06 17:12] LABS: #Eosinphils 0.1 thou/uL (0.0-0.7); #Lymphocytes 2.4 thou/uL (1.20-3.40); #Monocytes 0.7 thou/uL (0.11-0.59); #Neutrophils 2.9 thou/uL (1.40-6.50); %Basophils 0.6 % (0.0-1.0); %Eosinophils 1.5 % (0.0-10.0); %Lymphocytes 39.1 % (21.0-51.0); %Monocytes 11.4 % (0.0-10.0); %Neutrophils 47.4 % (42.0-75.0); Mean Corpuscular HGB CONC 33.3 g/dL (32.0-36.0); Mean Corpuscular Hemoglobin 32.3 pg (27.0-31.0); Mean Corpuscular Volume 96.8 fL (78.0-98.0); Mean Platelet Volume 7.6 fL (7.4-10.4); Platelet Count 279 thou/uL (130-400); RBC Distribution Width 12.8 % (11.5-14.5); Red Blood Cell (RBC) Count 4.65 mill/uL (4.20-5.40); White Blood Cell (WBC) Count 6.1 thou/uL (4.8-10.8)
[2020-01-06 17:35] LABS: ALT (SGPT) 20 U/L (8-55); AST (SGOT) 19 U/L (5-34); Albumin 4.3 g/dL (3.4-4.8); Alkaline Phosphatase 108 U/L (40-110); Anion Gap 13 mmol/L (10-20); BUN (Urea Nitrogen) 18 mg/dL (9.8-20.1); Bilirubin, Total 0.5 mg/dL (0.2-1.2); Calc. Creatinine Clearance 0 mL/min (70-130); Calcium 9.2 mg/dL (7.8-10.44); Carbon Dioxide 23 mmol/L (23-31); Chloride 108 mmol/L (98-107); Estimated GFR-MDRD 84; Globulin 2.9 g/dL (2.4-3.5); Glucose 102 mg/dL (83-110); Potassium 3.9 mmol/L (3.5-5.1); Protein, Total 7.2 g/dL (6.0-8.3); Sodium 140 mmol/L (136-145)
[2020-01-07 11:20] LABS: SARS-CoV-2 MS2 Positive; SARS-CoV-2 N Gene Negative; SARS-CoV-2 S Gene Negative; SARS-CoV-2 orf1ab Negative
== END 2020-01-06 16:16 | disposition home or self-care (01) ==
LOC: LABBT 16:15
PROVIDERS: ATTEND Internal Medicine Cardiovascular Disease
DX: Z01.812 Encounter for preprocedural laboratory examination (principal); Z11.59 Encounter for screening for other viral diseases; R07.9 Chest pain, unspecified
CPT/HCPCS: 80053; 85025; U0003; 87635

== ENCOUNTER 2020-01-10 06:10 | Day surgery (SDC) | payer MEDICARE, BC ==
[2020-01-06 16:19] VITALS: BMI 33.2
[2020-01-10] MEDS ORDERED: hydrALAZINE 20 MG/ML VIAL ONE (08:39)
[2020-01-10] MEDS ORDERED: Iopamidol 370 76% 100 ML VIAL ONE (09:04)
[2020-01-10] MEDS ORDERED: Gabapentin 100 MG CAP PO SCH (09:45)
== END 2020-01-10 13:55 | disposition home or self-care (01) ==
LOC: CCL 06:10
PROVIDERS: ATTEND Internal Medicine Cardiovascular Disease
PROC: 4A023N7 Measurement of Cardiac Sampling and Pressure, Left Heart, Percutaneous Approach (ICD-10-PCS; principal; 2020-01-10)
PROC: B2111ZZ Fluoroscopy of Multiple Coronary Arteries using Low Osmolar Contrast (ICD-10-PCS; 2020-01-10)
DX: I25.10 Atherosclerotic heart disease of native coronary artery without angina pectoris (principal); I47.2 Ventricular tachycardia; I48.0 Paroxysmal atrial fibrillation; M06.9 Rheumatoid arthritis, unspecified; I45.10 Unspecified right bundle-branch block; E03.9 Hypothyroidism, unspecified; M81.0 Age-related osteoporosis without current pathological fracture; G25.81 Restless legs syndrome; Z87.891 Personal history of nicotine dependence; Z79.899 Other long term (current) drug therapy; Z95.0 Presence of cardiac pacemaker
CPT/HCPCS: 76942; 93458; J0360; J1644; Q9967

== ENCOUNTER 2020-04-11 11:12 | Outpatient (CLI) | payer MEDICARE, BC ==
--- NOTE | 2020-04-11 11:56 | MMO ---
Bilateral MAMMO Bilat Screen [facility]. CLINICAL HISTORY: Patient is 84 years old and is seen for screening. The patient has the following family history of breast cancer: paternal grandmother, at age 55, malignant (generic) and cousin female, at age 40. 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 The patient has a history of right Lumpectomy in February, - malignant. VIEWS: The views performed were: bilateral craniocaudal with tomosynthesis and bilateral mediolateral oblique with tomosynthesis. FILMS COMPARED: The present examination has been compared to prior imaging studies performed at [facility] on 02/07/2016, 02/12/2017, 02/18/2018 and 04/07/2019. This study has been interpreted with the assistance of computer-aided detection. MAMMOGRAM FINDINGS: There are scattered fibroglandular densities. Finding 1: Benign calcifications are noted bilaterally. There are stable RIGHT post-operative changes. Finding 2: THERE IS A QUESTIONABLE MASS IN THE LEFT SUBAEROLAR BREAST. IMPRESSION: FINDING 1: FINDINGS IN BOTH BREASTS ARE BENIGN. FINDING 2: FINDING IN THE LEFT BREAST REQUIRES ADDITIONAL EVALUATION. SPOT COMPRESSION IS RECOMMENDED. AN ULTRASOUND EXAM IS RECOMMENDED. ADDITIONAL IMAGING. THE RESULTS OF THIS EXAM WERE SENT TO THE PATIENT. ACR BI-RADS Category 0 - Incomplete: Need additional imaging evaluation. [facility] will notify the patient of the need for additional imaging services. MAMMOGRAPHY NOTE: 1. A negative mammogram report should not delay a biopsy if a dominant of clinically suspicious mass is present. 2. Approximately 10% to 15% of breast cancers are not detected by mammography. 3. Adenosis and dense breasts may obscure an underlying neoplasm. Reported by: EMEKA SOUTH MD Electonically Signed: [id number]
== END 2020-04-11 11:13 | disposition home or self-care (01) ==
LOC: BICMAMMO 11:12
PROVIDERS: ATTEND Specialist
DX: Z12.31 Encounter for screening mammogram for malignant neoplasm of breast (principal); Z85.3 Personal history of malignant neoplasm of breast; Z80.3 Family history of malignant neoplasm of breast; Z98.890 Other specified postprocedural states
CPT/HCPCS: 77063; 77067

== ENCOUNTER 2020-09-28 10:04 | Outpatient (CLI) | payer MEDICARE, BC ==
--- NOTE | 2020-09-28 12:16 | CT ---
CT CHEST WITHOUT CONTRAST CLINICAL INDICATION: Follow-up pulmonary nodule. History of breast cancer. History of chemotherapy and radiation therapy f or COMPARISON: 09/30/2019 and 03/16/2019 FINDINGS: Aorta: Vascular calcifications are seen in the thoracic aorta and again involving the coronary arteri es. Lungs: Stable irregular right upper lobe pulmonary nodule is again seen. This nodule measures approxi mately 1.9 cm x 1.3 cm with measurement on study of 09/30/2019 at 1.8 cm x 1.3 cm in measurement on study in 2019 of 1.6 cm x 0.9 cm. There is adjacent mild linear densities again present. A stable 3 mm pulmonary nodule is again seen in the lateral aspect left upper lobe. No new pulmonary nodule or mass is seen. There is no pleural effusion. Mediastinum: No enlarged lymph nodes are seen by CT size criteria. Cardiac silhouette is enlarged. Osseous structures: Multilevel degenerative changes are again seen in the spine. No suspicious lytic or sclerotic osseous lesion is identified. Chest wall: A dual-lead left subclavian cardiac pacemaking device remains in place. There is stable a lloyd of scarring in the right lateral breast. Upper abdomen: Multiple nonobstructing bilateral renal calculi are seen. Calcification is again seen in the posterior aspect lateral segment left hepatic lobe. A right adrenal nodule measuring 1.2 cm is again seen which does demonstrate attenuation coefficient suggestive of an adrenal adenoma. IMPRESSION: 1. Irregular right upper lobe nodule with greatest dimension of 1.9 cm. This has enlarged when compar ed to study in 2019 but is similar in size compared to study in 2019. 2. Stable right adrenal nodule suggestive of an adrenal adenoma. 3. Mild cardiomegaly. 4. Nonobstructing bilateral renal calculi.
== END 2020-09-28 10:05 | disposition home or self-care (01) ==
LOC: BICCT 10:04
PROVIDERS: ATTEND Internal Medicine Critical Care Medicine
DX: R91.1 Solitary pulmonary nodule (principal); N20.0 Calculus of kidney; E27.8 Other specified disorders of adrenal gland; I51.7 Cardiomegaly
CPT/HCPCS: 71250

== ENCOUNTER 2021-02-22 10:17 | Inpatient (IN) | payer MEDICARE, BC ==
[2021-02-22 10:57] LABS: #Lymphocytes 1.5 thou/uL (1.20-3.40); #Monocytes 1.1 thou/uL (0.11-0.59); #Neutrophils 8.5 thou/uL (1.40-6.50); %Basophils 0.4 % (0.0-1.0); %Eosinophils 0.3 % (0.0-10.0); %Lymphocytes 13.7 % (21.0-51.0); %Monocytes 9.4 % (0.0-10.0); %Neutrophils 76.1 % (42.0-75.0); Hemoglobin 13.7 g/dL (12.0-16.0); Mean Corpuscular HGB CONC 33.5 g/dL (32.0-36.0); Mean Corpuscular Hemoglobin 32.7 pg (27.0-31.0); Mean Corpuscular Volume 97.8 fL (78.0-98.0); Mean Platelet Volume 6.7 fL (7.4-10.4); Platelet Count 357 thou/uL (130-400); RBC Distribution Width 13.1 % (11.5-14.5); Red Blood Cell (RBC) Count 4.18 mill/uL (4.20-5.40); White Blood Cell (WBC) Count 11.2 thou/uL (4.8-10.8)
[2021-02-22 11:18] LABS: ALT (SGPT) 20 U/L (8-55); AST (SGOT) 18 U/L (5-34); Albumin 4.1 g/dL (3.4-4.8); Alkaline Phosphatase 91 U/L (40-110); Anion Gap 13 mmol/L (10-20); BUN (Urea Nitrogen) 13 mg/dL (9.8-20.1); Bilirubin, Total 0.8 mg/dL (0.2-1.2); Calc. Creatinine Clearance 0 mL/min (70-130); Calcium 9.7 mg/dL (7.8-10.44); Carbon Dioxide 27 mmol/L (23-31); Chloride 104 mmol/L (98-107); Globulin 3.2 g/dL (2.4-3.5); Glucose 113 mg/dL (83-110); Lipase 12 U/L (8-78); Protein, Total 7.3 g/dL (5.8-8.1); Sodium 140 mmol/L (136-145)
[2021-02-22] MEDS ORDERED: Ondansetron PF 4 MG/2 ML Vial ONE (11:44)
[2021-02-22] MEDS ORDERED: Morphine 4 MG/ML VIAL ONE (11:44)
[2021-02-22 12:02] LABS: Bilirubin Negative (Negative); Blood, Urine 3+ (Negative); Clarity Turbid (Clear); Glucose, Urine (Dipstick) Normal (Negative); Ketone, Urine Negative (Negative); Leukocyte 500 Leu/uL (Negative); Nitrite Negative (Negative); Protein, Urine (Dipstick) 20 mg/dL (Neg-Trace); RBC/HPF 21-50 HPF (0-3); Specific Gravity, Urine 1.016 (1.002-1.036); Urobilinogen Normal mg/dL (Less than 2); WBC/HPF Greater than 50 HPF (0-3)
[2021-02-22 12:05] LABS: Bacteria/HPF 1+ HPF (None Seen)
[2021-02-22] MEDS ORDERED: EPINEPHrine 1 MG/ML VIAL ONE (12:23)
[2021-02-22] MEDS ORDERED: methylPREDNISolone Sod Succ/PF 125 MG/2 ML VIAL ONE (12:24)
[2021-02-22] MEDS ORDERED: diphenhydrAMINE 50 MG/ML VIAL ONE (12:24)
[2021-02-22] MEDS ORDERED: Famotidine/PF 20 mg/2ml Vial ONE (12:31)
[2021-02-22] MEDS ORDERED: Naloxone HCl 0.4 mg/ml Vial ONE (12:57)
[2021-02-22] MEDS ORDERED: cefTRIAXone\\ROCEPHIN 2 GM VIAL ONE (15:06)
[2021-02-22 16:55] LABS: Lactic Acid 1.6 mmol/L (0.5-2.2)
[2021-02-22 17:53] LABS: SARS-CoV-2 NAA Rapid Test Not Detected (NotDetected)
[2021-02-22] MEDS ORDERED: Ketorolac Tromethamine 30 MG/ML VIAL IVP PRN (21:35)
[2021-02-22] MEDS ORDERED: Ondansetron PF 4 MG/2 ML Vial IVP PRN (21:35)
[2021-02-22] MEDS ORDERED: Lorazepam 2 MG/ML VIAL SLOW IVP PRN (21:36)
[2021-02-22] MEDS ORDERED: diphenhydrAMINE 50 MG/ML VIAL IM/IV PRN (21:38)
[2021-02-22] MEDS ORDERED: Bacteriostatic Water 30 ML VIAL FS PRN (21:45)
[2021-02-22] MEDS: Sodium Chloride 0.9% 1,000 ML IV SCH (21:49)
[2021-02-22 22:20] VITALS: BMI 30.9
[2021-02-22] MEDS: methylPREDNISolone Sod Succ 40 MG VIAL IVP SCH (23:07)
[2021-02-23] MEDS ORDERED: Iopamidol 0 ML ONE (00:49)
[2021-02-23] MEDS ORDERED: Ioversol 68 % 50 ML VIAL ONE (00:49)
[2021-02-23] MEDS ORDERED: Iothalamate Meglumine 60% 30 ML VIAL FS ONE (01:00)
[2021-02-23] MEDS ORDERED: PROPOFOL 200 MG/20 ML VIAL ONE (01:15)
[2021-02-23] MEDS ORDERED: B & O ONE (01:46)
[2021-02-23] MEDS ORDERED: Gabapentin 100 MG CAP PO SCH ×3 (02:45→21:00)
[2021-02-23] MEDS: Sodium Chloride 0.9% 1,000 ML IV SCH ×3 (05:41→20:17)
[2021-02-23] MEDS: methylPREDNISolone Sod Succ 40 MG VIAL IVP SCH ×2 (05:43→11:31)
[2021-02-23] MEDS ORDERED: Levothyroxine 100 MCG SDV IVP SCH (06:00)
[2021-02-23 06:19] LABS: #Basophils 0.1 thou/uL (0.0-0.2); #Lymphocytes 0.2 thou/uL (1.20-3.40); #Monocytes 0.5 thou/uL (0.11-0.59); #Neutrophils 15.1 thou/uL (1.40-6.50); %Basophils 0.9 % (0.0-1.0); %Eosinophils 0.1 % (0.0-10.0); %Lymphocytes 1.5 % (21.0-51.0); %Monocytes 2.8 % (0.0-10.0); %Neutrophils 94.7 % (42.0-75.0); Hemoglobin 11.2 g/dL (12.0-16.0); Mean Corpuscular HGB CONC 31.8 g/dL (32.0-36.0); Mean Corpuscular Hemoglobin 31.5 pg (27.0-31.0); Mean Corpuscular Volume 98.9 fL (78.0-98.0); Mean Platelet Volume 7.3 fL (7.4-10.4); Platelet Count 264 thou/uL (130-400); RBC Distribution Width 13.2 % (11.5-14.5); Red Blood Cell (RBC) Count 3.56 mill/uL (4.20-5.40); White Blood Cell (WBC) Count 15.9 thou/uL (4.8-10.8)
[2021-02-23 06:46] LABS: Anion Gap 12 mmol/L (10-20); BUN (Urea Nitrogen) 12 mg/dL (9.8-20.1); Calc. Creatinine Clearance 81 mL/min (70-130); Calcium 8.3 mg/dL (7.8-10.44); Carbon Dioxide 20 mmol/L (23-31); Chloride 110 mmol/L (98-107); Glucose 167 mg/dL (83-110); Sodium 138 mmol/L (136-145)
[2021-02-23] MEDS ORDERED: Meropenem 1 GM in Sodium Chloride 0.9% 100 ML IVPB SCH (08:00)
[2021-02-23] MEDS ORDERED: Apixaban 5 MG TAB PO SCH (09:00)
[2021-02-23] MEDS ORDERED: Enoxaparin Sodium 40 MG/0.4 ML SYRINGE SC SCH (09:00)
[2021-02-23] MEDS ORDERED: Famotidine/PF 20 mg/2ml Vial SLOW IVP SCH (09:00)
[2021-02-23] MEDS: Gabapentin 100 MG CAP PO SCH (09:11)
[2021-02-23] MEDS: MEROPENEM 1 GM/50 ML 1 GM in Premix Bag 1 BAG IVPB SCH ×2 (09:12→18:16)
[2021-02-23] MEDS: cefTRIAXone\\ROCEPHIN 1 GM in Sodium Chloride 0.9% 100 ML IVPB SCH (14:12)
[2021-02-23] MEDS ORDERED: Zolpidem Tartrate 5 MG TAB PO SCH (21:00)
[2021-02-24] MEDS: MEROPENEM 1 GM/50 ML 1 GM in Premix Bag 1 BAG IVPB SCH ×3 (00:10→17:01)
[2021-02-24] MEDS: Sodium Chloride 0.9% 1,000 ML IV SCH ×2 (04:49→13:21)
[2021-02-24] MEDS ORDERED: Levothyroxine Sodium 75 MCG TAB PO SCH (06:00)
[2021-02-24 06:04] LABS: #Lymphocytes 0.8 thou/uL (1.20-3.40); #Monocytes 0.9 thou/uL (0.11-0.59); #Neutrophils 8.7 thou/uL (1.40-6.50); %Eosinophils 0.2 % (0.0-10.0); %Lymphocytes 7.6 % (21.0-51.0); %Monocytes 8.5 % (0.0-10.0); %Neutrophils 83.7 % (42.0-75.0); Hemoglobin 10.6 g/dL (12.0-16.0); Mean Corpuscular Volume 99.8 fL (78.0-98.0); Mean Platelet Volume 7.7 fL (7.4-10.4); Platelet Count 259 thou/uL (130-400); RBC Distribution Width 13.2 % (11.5-14.5); Red Blood Cell (RBC) Count 3.11 mill/uL (4.20-5.40); White Blood Cell (WBC) Count 10.4 thou/uL (4.8-10.8)
[2021-02-24 06:18] LABS: Anion Gap 10 mmol/L (10-20); BUN (Urea Nitrogen) 17 mg/dL (9.8-20.1); Calc. Creatinine Clearance 90 mL/min (70-130); Calcium 8.1 mg/dL (7.8-10.44); Carbon Dioxide 22 mmol/L (23-31); Chloride 111 mmol/L (98-107); Glucose 116 mg/dL (83-110); Potassium 3.9 mmol/L (3.5-5.1); Sodium 139 mmol/L (136-145)
[2021-02-24] MEDS: Gabapentin 100 MG CAP PO SCH (09:31)
[2021-02-24] MEDS: cefTRIAXone\\ROCEPHIN 1 GM in Sodium Chloride 0.9% 100 ML IVPB SCH (15:32)
[2021-02-24] MEDS ORDERED: cloNIDine 0.1 MG TAB PO SCH (17:00)
[2021-02-24 18:34] VITALS: BP 174/82; TEMP 99
== END 2021-02-24 18:49 | disposition home or self-care (01) | DRG 854 ==
LOC: ERS 10:17 → ERHOLD 13:34 → T4-A 21:33
PROVIDERS: ADMIT Specialist; ATTEND Specialist
PROC: 0T768DZ Dilation of Right Ureter with Intraluminal Device, Via Natural or Artificial Opening Endoscopic (ICD-10-PCS; principal; 2021-02-23)
PROC: BT1D1ZZ Fluoroscopy of Right Kidney, Ureter and Bladder using Low Osmolar Contrast (ICD-10-PCS; 2021-02-23)
DX: A41.9 Sepsis, unspecified organism (principal); N39.0 Urinary tract infection, site not specified; T78.2XXA Anaphylactic shock, unspecified, initial encounter; N20.2 Calculus of kidney with calculus of ureter; M06.9 Rheumatoid arthritis, unspecified; E03.9 Hypothyroidism, unspecified; I10 Essential (primary) hypertension; N13.9 Obstructive and reflux uropathy, unspecified; Z20.822 Contact with and (suspected) exposure to COVID-19; K21.9 Gastro-esophageal reflux disease without esophagitis; Z85.3 Personal history of malignant neoplasm of breast; Z95.0 Presence of cardiac pacemaker; Z87.891 Personal history of nicotine dependence; Z91.041 Radiographic dye allergy status; Z79.01 Long term (current) use of anticoagulants; Z79.899 Other long term (current) drug therapy; Z98.890 Other specified postprocedural states
CPT/HCPCS: 36415; 74177; 74420; 80048; 80053; 81003; 81015; 83605; 83690; 84484; 85025; 87040; 87070; 87077; 87086; 87149; 87186; 87205; 93005; 96365; 96372; 96375; J0171; J0696; J1200; J2060; J2185; J2270; J2310; J2405; J2704; J2920; J2930; J3490; Q9967; S0028; U0002; U0005

== ENCOUNTER 2021-12-06 09:29 | Outpatient (CLI) | payer MEDICARE, BC | END 2021-12-06 09:30 | disposition home or self-care (01) | LOC: CT 09:29 | PROVIDERS: ATTEND Internal Medicine Critical Care Medicine | DX: R91.1 Solitary pulmonary nodule (principal); K76.0 Fatty (change of) liver, not elsewhere classified; N20.0 Calculus of kidney | CPT/HCPCS: 71250 ==

== ENCOUNTER 2021-12-14 10:48 | Outpatient (CLI) | payer MEDICARE, BC | END 2021-12-14 10:49 | disposition home or self-care (01) | LOC: BICMAMMO 10:48 | PROVIDERS: ATTEND Specialist | DX: Z12.31 Encounter for screening mammogram for malignant neoplasm of breast (principal); Z98.890 Other specified postprocedural states; Z85.3 Personal history of malignant neoplasm of breast; Z80.3 Family history of malignant neoplasm of breast | CPT/HCPCS: 77063; 77067 ==

== ENCOUNTER 2022-12-18 10:21 | Outpatient (CLI) | payer MEDICARE, BC | END 2022-12-18 10:22 | disposition home or self-care (01) | LOC: BICCT 10:21 | PROVIDERS: ATTEND Internal Medicine Critical Care Medicine | DX: R91.1 Solitary pulmonary nodule (principal) | CPT/HCPCS: 71250 ==

== ENCOUNTER 2023-07-02 13:06 | Outpatient (CLI) | payer MEDICARE, BC | END 2023-07-02 13:07 | disposition home or self-care (01) | LOC: BICCT 13:06 | PROVIDERS: ATTEND Internal Medicine Critical Care Medicine | DX: R91.1 Solitary pulmonary nodule (principal); J98.4 Other disorders of lung; K44.9 Diaphragmatic hernia without obstruction or gangrene; N20.0 Calculus of kidney; M47.819 Spondylosis without myelopathy or radiculopathy, site unspecified; E27.8 Other specified disorders of adrenal gland; K57.30 Diverticulosis of large intestine without perforation or abscess without bleeding; K75.3 Granulomatous hepatitis, not elsewhere classified; I99.8 Other disorder of circulatory system; R59.0 Localized enlarged lymph nodes | CPT/HCPCS: 71250 ==

== ENCOUNTER → 2023-10-06 | Day surgery (SDC) | payer MEDICARE, BC ==
[~2023-10-06] MED LIST changes: -Gadobenate Dimeglumine 529 MG/1 ML (20ML VIAL) ONE; +Lidocaine 1% PF 5 ML VIAL ONE; +Lidocaine 1% w/Epinephrine 1:100K 20 ML VIAL ONE; +Midazolam HCl 2 mg/2 ml Vial ONE; +Sodium Bicarbonate 2.5 MEQ/5 ML SDV ONE; +fentaNYL 50 mcg/mL 1 mL Vial ONE
[2023-10-06 09:09] LABS: #Monocytes 0.6 thou/uL (0.11-0.59); #Neutrophils 3.9 thou/uL (1.40-6.50); %Basophils 0.6 % (0.0-1.0); %Eosinophils 0.6 % (0.0-10.0); %Lymphocytes 31.8 % (21.0-51.0); %Monocytes 9.5 % (0.0-10.0); %Neutrophils 57.4 % (42.0-75.0); Hematocrit 43.1 % (36.0-47.0); Hemoglobin 14.3 g/dL (12.0-16.0); Mean Corpuscular HGB CONC 33.2 g/dL (32.0-36.0); Mean Corpuscular Hemoglobin 32.3 pg (27.0-31.0); Mean Corpuscular Volume 97.3 fl (78.0-98.0); Platelet Count 259 10x3/uL (130-400); RBC Distribution Width 14.5 % (11.5-14.5); Red Blood Cell (RBC) Count 4.43 mill/uL (4.20-5.40); White Blood Cell (WBC) Count 6.7 10x3/uL (4.8-10.8)
[2023-10-06 09:23] LABS: PTT 31.7 sec (22.9-36.1); Prothrombin Time 12.9 sec (12.0-14.7)
== END ==
LOC: CT 08:40
PROVIDERS: ATTEND Radiology Radiation Oncology
PROC: 0BBC3ZX Excision of Right Upper Lung Lobe, Percutaneous Approach, Diagnostic (ICD-10-PCS; principal; 2023-10-06)
DX: C34.11 Malignant neoplasm of upper lobe, right bronchus or lung (principal); Z87.891 Personal history of nicotine dependence; Z79.899 Other long term (current) drug therapy; Z91.041 Radiographic dye allergy status
CPT/HCPCS: 32408; 71045; 77012; 85025; 85610; 85730; 88305; 88333; 88334; 88341; 88342; 99152; 99153; J2250; J3010

== ENCOUNTER 2024-09-15 12:52 | Outpatient (CLI) | payer MEDICARE, BC | END 2024-09-15 12:53 | disposition home or self-care (01) | LOC: BICCT 12:52 | PROVIDERS: ATTEND Radiology Radiation Oncology | DX: C34.11 Malignant neoplasm of upper lobe, right bronchus or lung (principal); R91.8 Other nonspecific abnormal finding of lung field; J98.4 Other disorders of lung; E27.9 Disorder of adrenal gland, unspecified | CPT/HCPCS: 71250 ==

== ENCOUNTER 2025-03-17 10:50 | Outpatient (CLI) | payer MEDICARE, BC | END 2025-03-17 10:51 | disposition home or self-care (01) | LOC: BICCT 10:50 | PROVIDERS: ATTEND Radiology Radiation Oncology | DX: C34.11 Malignant neoplasm of upper lobe, right bronchus or lung (principal); R91.8 Other nonspecific abnormal finding of lung field; E27.8 Other specified disorders of adrenal gland; J94.8 Other specified pleural conditions | CPT/HCPCS: 71250 ==